=== PATIENT | male | born 1965 | race Caucasian/White ===

== ENCOUNTER 2018-06-18 18:29 | Inpatient (IN) ==
--- NOTE | 2018-06-18 18:43 | PROVIDER DOCUMENTATION ---
HPI-General Adult - General Chief Complaint: Chest Pain Stated Complaint: CP/SOB Time Seen by Provider: 06/18/18 18:43 Allergies/Adverse Reactions: Patient Allergies Allergy/AdvReac Type Severity Reaction Status Date / Time No Known Allergies Allergy Verified 01/11/18 06:08 Home Medications: Home Medication List Medication Instructions Recorded Confirmed Last Taken Type Pregabalin [Lyrica] 100 mg PO HS capsule 04/19/17 01/11/18 Unknown Rx Insulin Lispro [Humalog] 10 unit SQ AC 01/11/18 01/12/18 Unknown History Methadone HCl 1 tab PO DAILY 01/11/18 01/11/18 Unknown History Oxycodone HCl/Acetaminophen 1 tab PO DAILY 01/11/18 01/11/18 Unknown History [Oxycodon-Acetaminophen 7.5-325] Insulin Glargine [Lantus] 30 units SQ QHS 01/12/18 01/12/18 Unknown History Past History - Adult - PAST MEDICAL HISTORY-ADULT Major Childhood Illnesses: reports: denies history Cardiovascular: reports: denies history Genitourinary: reports: denies history Endocrine/Immune: reports: Diabetes - IMMUNIZATION STATUS Childhood Immunizations: See Nurse Assessment Flu Vaccine: See Nurse Assessment Progress - PLAN OF CARE/RESULTS Progress/Plan/Lab Results: Vital Signs - 8 hr 06/18/18 18:30 Temperature 98 F Pulse Rate 119 H Respiratory Rate 35 H O2 Sat by Pulse Oximetry 98 Departure - Departure Referrals and Follow-Ups: None,PCP [Primary Care Provider] -
[2018-06-18] MEDS ORDERED: NS 2,000 ML IV ONE (19:04)
[2018-06-18 19:20] LABS: BE -26.1 mmoll (-3.0-3.0); BLOOD TYPE ARTERIAL; HCO3-(ACT) 4.5 mmoll (20.0-26.0); O2(CT) 20.7 mL/dL (15.0-23.0); O2HB 96.8 % (95.0-99.0); PO2(98.6) 131 mmHg (60-100); SAMPLE BLOOD; SAO2 99.7 % (95.0-100.0); THB 15.1 g/dL (11.5-17.4)
[2018-06-18 19:22] LABS: PCO2(98.6) 11 mmHg (35-45); pH(98.6) 7.02 (7.35-7.45)
[2018-06-18 19:23] LABS: ALLEN TEST NO; MODALITY ROOM AIR
[2018-06-18] MEDS ORDERED: ROCEPHIN 1 GM in NS 50 ML IV ONE (19:39)
[2018-06-18] MEDS ORDERED: NS 500 ML IV ONE (19:42)
[2018-06-18] MEDS ORDERED: VANCOMYCIN 1 GM/NS 1 GM/250 ML IVPB IV ONE (19:42)
[2018-06-18] MEDS ORDERED: NS 1,000 ML IV ONE (19:42)
[2018-06-18] MEDS ORDERED: HUMULIN R IV ONE (19:54)
[2018-06-18] MEDS ORDERED: ZYPREXA ZYDIS PO ONE (19:58)
[2018-06-18] MEDS ORDERED: HUMULIN R (PARKWAY) 100 UNITS in NS 100 ML IV SCH (20:00)
[2018-06-18 20:01] LABS: BASO# 0.11 X1000 (0.0-0.2); BASO% 0.4 % (0.0-0.8); EOS# 0.05 X1000 (0.0-0.7); EOS% 0.2 % (0.0-10.0); HEMATOCRIT 43.3 % (42.0-52.0); HEMOGLOBIN 14.7 g/dL (14.0-18.0); IMM GRAN# 0.73 X1000 (0.0-0.04); IMM GRAN% 2.8 % (0.0-0.5); LYMPH# 4.13 X1000 (1.2-3.4); MCHC 33.9 g/dL (33-37); MCV 88.4 FL (81-99); MONO# 0.98 X1000 (0.11-0.59); MONO% 3.8 % (1.7-9.3); MPV 10.5 FL (7.4-10.4); NEUT# 19.86 X1000 (1.4-6.5); NEUT% 76.8 % (42.2-75.2); PLT 412 X1000 (130-400); RDW 13.9 % (11.5-14.5); WBC 25.86 X1000 (4.8-10.8)
--- NOTE | 2018-06-18 20:02 | PROVIDER DOCUMENTATION ---
This chart was entered by Mike Nagel Scribe, acting as scribe for Camilo Lubin MD. HPI-Chest Pain - General Chief Complaint: Chest Pain Stated Complaint: CP/SOB Time Seen by Provider: 06/18/18 18:43 Source: patient Allergies/Adverse Reactions: Patient Allergies Allergy/AdvReac Type Severity Reaction Status Date / Time No Known Allergies Allergy Verified 01/11/18 06:08 Home Medications: Home Medication List Medication Instructions Recorded Confirmed Last Taken Type Pregabalin [Lyrica] 100 mg PO HS capsule 04/19/17 01/11/18 Unknown Rx Insulin Lispro [Humalog] 10 unit SQ AC 01/11/18 01/12/18 Unknown History Methadone HCl 1 tab PO DAILY 01/11/18 01/11/18 Unknown History Oxycodone HCl/Acetaminophen 1 tab PO DAILY 01/11/18 01/11/18 Unknown History [Oxycodon-Acetaminophen 7.5-325] Insulin Glargine [Lantus] 30 units SQ QHS 01/12/18 01/12/18 Unknown History - History of Present Illness-CP Nature of Presenting Problem: Pt is a 53 y/o WM with history of diabetes and chronic back pain requiring daily methadone who presents with fingerstick glucose over 500, tachycardia, polydypsia,polyuria, pleuritic chest pain, and dry mucous membranes- worsening over the past 2 days. Patient is demanding pain medication for his chronic back pain. Location: reports: central Chest Pain Radiation: reports: back Quality of Pain: reports: aching Severity in ED: moderate Onset/Duration: 2 days ago Timing: still present Context/Activities at Onset: reports: none Modifying Factors: improves with: nothing Associated Symptoms: denies: abdominal pain, dizziness, fever/chills, shortness of breath Nitro Today/Relief: no nitro taken today Aspirin Treatment Today: no aspirin today Similar Symptoms Previously?: No Recently Seen Here or By Another Healthcare Provider: No Review of Systems - Adult - REVIEW OF SYSTEMS - ADULT Constitutional: denies: chills, fever Eyes: reports: no symptoms reported Ears, Nose, Mouth & Throat: reports: no symptoms reported Cardiovascular: reports: chest pain, edema Respiratory: reports: shortness of breath. denies: cough, wheezing Gastrointestinal: denies: abdominal pain, nausea, vomiting Genitourinary: reports: frequency. denies: dysuria Musculoskeletal: reports: back pain. denies: neck pain Integumentary: reports: no symptoms reported Neurological: denies: dizziness/vertigo, headache/migraines Psychiatric: reports: no symptoms reported Endocrine: reports: no symptoms reported Hematologic/Lymphatic: reports: no symptoms reported Allergic/Immunologic: reports: no symptoms reported All Other Systems: Reviewed and Negative Past History - Adult - PAST MEDICAL HISTORY-ADULT Review of Records: reports: Old Records Reviewed, Nursing Assessment Review, Medications Reviewed Major Childhood Illnesses: reports: denies history Cardiovascular: reports: denies history Genitourinary: reports: denies history Endocrine/Immune: reports: Diabetes - IMMUNIZATION STATUS Childhood Immunizations: See Nurse Assessment Flu Vaccine: See Nurse Assessment - SOCIAL HISTORY Smoking: cigarettes, less than 1 pack/day Living Situation: family Physical Exam-General - PHYSICAL EXAM-ADULT Initial Vital Signs Reviewed: Yes - CONSTITUTIONAL General Appearance: alert, no apparent distress, mild distress, other (fruity odor, dry mucous membranes, anxious,agitated) - EYES Eyes: PERRL/EOMI, pink conjunctivae - HEAD, EARS, NOSE, MOUTH & THROAT HENMT: other (clear pharynx). negative: moist mucous membranes (dry) - NECK Neck: non-tender, full range of motion, supple, normal inspection - RESPIRATORY Respiratory: pain on inspiration, retractions, increased rate - CARDIOVASCULAR Cardiovascular: normal peripheral pulses, tachycardia - GASTROINTESTINAL (ABDOMEN) Abdominal Exam: normal bowel sounds, non tender, soft - MUSCULOSKELETAL Back Exam: normal inspection, no CVA tenderness, other (vague lower back tenderness) Extremity: normal range of motion, non-tender, normal gait, normal inspection Peripheral Pulses: radial (R): 2+, radial (L): 2+ - SKIN Integumentary: normal color, warm/dry, other (decreased turgor) - NEUROLOGIC Neurologic: grossly normal, no motor/sensory deficits - PSYCHIATRIC Psych/Mental Status: normal thought content, normal thought process, oriented x 3, anxious Progress - PLAN OF CARE/RESULTS Progress/Plan/Lab Results: Vital Signs - 8 hr 06/18/18 18:30 06/18/18 18:45 Temperature 98 F Pulse Rate 119 H 122 H Respiratory Rate 35 H Blood Pressure 134/102 O2 Sat by Pulse Oximetry 98 Laboratory Results - last 24 hr 06/18/18 06/18/18 06/18/18 18:49 18:49 18:49 WBC 25.86 H RBC 4.90 Hgb 14.7 Hct 43.3 MCV 88.4 MCH 30.0 MCHC 33.9 RDW Std Deviation 13.9 Plt Count 412 H MPV 10.5 H Immature Gran % (Auto) 2.8 H Neut % (Auto) 76.8 H Lymph % (Auto) 16.0 L Wirt % (Auto) 3.8 Eos % (Auto) 0.2 Baso % (Auto) 0.4 Immature Gran # (Auto) 0.73 H Neut # (Auto) 19.86 H Lymph # (Auto) 4.13 H Wirt # (Auto) 0.98 H Eos # (Auto) 0.05 Baso # (Auto) 0.11 D-Dimer, Quantitative Specimen Type Sample Site pH pCO2 pO2 HCO3 Base Excess Oxyhemoglobin ABG O2 Sat (Calculated) ABG O2 Saturation ABG Carboxyhemoglobin ABG Methemoglobin [place] Test A-a O2 Difference Total Hemoglobin Lactate Blood Gas Modality FiO2 % Sodium 136 Potassium 5.2 H Chloride 86 L Carbon Dioxide 4 L Anion Gap 46 BUN 23 H Creatinine 1.7 H Estimated GFR/1.73 m2 42 BUN/Creatinine Ratio 14 Calculated Osmolality 312 Calcium 9.9 Phosphorus Total Bilirubin 0.40 AST 53 H ALT 167 H Alkaline Phosphatase 123 H Creatine Kinase 72 Troponin T Afm-Y-Afzzgumypwj Pept Total Protein 7.8 Albumin 4.4 Globulin 3.0 Albumin/Globulin Ratio 1.0 Amylase 7 L Lipase 9 L 06/18/18 06/18/18 06/18/18 18:49 18:49 18:49 WBC RBC Hgb Hct MCV MCH MCHC RDW Std Deviation Plt Count MPV Immature Gran % (Auto) Neut % (Auto) Lymph % (Auto) Wirt % (Auto) Eos % (Auto) Baso % (Auto) Immature Gran # (Auto) Neut # (Auto) Lymph # (Auto) Wirt # (Auto) Eos # (Auto) Baso # (Auto) D-Dimer, Quantitative 0.97 H Specimen Type Sample Site pH pCO2 pO2 HCO3 Base Excess Oxyhemoglobin ABG O2 Sat (Calculated) ABG O2 Saturation ABG Carboxyhemoglobin ABG Methemoglobin [place] Test A-a O2 Difference Total Hemoglobin Lactate Blood Gas Modality FiO2 % Sodium Potassium Chloride Carbon Dioxide Anion Gap BUN Creatinine Estimated GFR/1.73 m2 BUN/Creatinine Ratio Calculated Osmolality Calcium Phosphorus Total Bilirubin AST ALT Alkaline Phosphatase Creatine Kinase Troponin T < 0.010 Fye-[id number]-Hirqeqdxqgv Pept 199 H Total Protein Albumin Globulin Albumin/Globulin Ratio Amylase Lipase 06/18/18 06/18/18 18:49 19:00 WBC RBC Hgb Hct MCV MCH MCHC RDW Std Deviation Plt Count MPV Immature Gran % (Auto) Neut % (Auto) Lymph % (Auto) Wirt % (Auto) Eos % (Auto) Baso % (Auto) Immature Gran # (Auto) Neut # (Auto) Lymph # (Auto) Wirt # (Auto) Eos # (Auto) Baso # (Auto) D-Dimer, Quantitative Specimen Type ARTERIAL Sample Site L BRACHIAL pH 7.02 L* pCO2 11 L* pO2 131 H HCO3 4.5 L Base Excess -26.1 L Oxyhemoglobin 96.8 ABG O2 Sat (Calculated) 20.7 ABG O2 Saturation 99.7 ABG Carboxyhemoglobin 1.90 ABG Methemoglobin 1.0 [place] Test NO A-a O2 Difference 5.0 Total Hemoglobin 15.1 Lactate 7.90 H* Blood Gas Modality ROOM AIR FiO2 % 21.0 Sodium Potassium Chloride Carbon Dioxide Anion Gap BUN Creatinine Estimated GFR/1.73 m2 BUN/Creatinine Ratio Calculated Osmolality Calcium Phosphorus 8.0 H Total Bilirubin AST ALT Alkaline Phosphatase Creatine Kinase Troponin T Arv-R-Osftvzfcacc Pept Total Protein Albumin Globulin Albumin/Globulin Ratio Amylase Lipase Orders Category Date Time Status Cardiac Monitoring DIRECTED Care 06/18/18 18:44 Active FSBS/Accucheck Result NOW Care 06/18/18 18:43 Active IV Insertion ORDERED Care 06/18/18 19:42 Active Intake and Output-Strict ORDERED Care 06/18/18 19:42 Active Notify MD/PA/SURVEY INTERVIEWER for exam NOW Care 06/18/18 19:42 Active Repeat Vital Signs .Blood Pressure Care 06/18/18 19:42 Active Repeat Vital Signs .Heart Rate Care 06/18/18 19:42 Active Repeat Vital Signs .Oxygen Saturation Care 06/18/18 19:42 Active Repeat Vital Signs .Respiratory Rate Care 06/18/18 19:42 Active Repeat Vital Signs .Temp Care 06/18/18 19:42 Active Saline Loc DIRECTED Care 06/18/18 18:44 Active NPO Diet 06/18/18 18:44 Active CHEST-PORTABLE [RAD] Stat Exams 06/18/18 19:06 Ordered ABG [RESP] Routine Lab 06/18/18 19:00 Completed AMYLASE [CHEM] Stat Lab 06/18/18 18:49 Results BLOOD CULTURE [BLDCUL] Stat Lab 06/18/18 20:17 Ordered CBC WITH ELECTRONIC DIFF [HEME] Stat Lab 06/18/18 18:49 Completed CK PROFILE [SP CHEM] Stat Lab 06/18/18 18:49 Completed COMPREHENSIVE METABOLIC PANEL [CHEM] Stat Lab 06/18/18 18:49 Results D-DIMER [COAG] Stat Lab 06/18/18 18:[address] Stat Lab 06/18/18 19:42 Uncollected LACTATE, PLASMA [CHEM] Timed Lab 06/18/18 19:42 Ordered LIPASE [CHEM] Stat Lab 06/18/18 18:49 Results MAGNESIUM [CHEM] Lab 06/18/18 21:00 Uncollected MAGNESIUM [CHEM] Lab 06/19/18 01:00 Uncollected MAGNESIUM [CHEM] Lab 06/19/18 05:00 Uncollected MAGNESIUM [CHEM] Stat Lab 06/18/18 20:05 Ordered PHOSPHORUS [CHEM] Q4HR Lab 06/18/18 18:49 Completed PHOSPHORUS [CHEM] Q4HR Lab 06/19/18 01:00 Ordered PHOSPHORUS [CHEM] Q4HR Lab 06/19/18 05:00 Ordered PHOSPHORUS [CHEM] Stat Lab 06/18/18 20:05 Ordered PRO B-NATRIURETIC PEPTIDE Stat Lab 06/18/18 18:49 Completed TROPONIN T Stat Lab 06/18/18 18:[address] W/POSS RFLX CULT [URINALYSIS] Stat Lab 06/18/18 18:44 Uncollected URINE DRUG SCREEN PL Stat Lab 06/18/18 19:54 Uncollected 0.9% Sodium Chloride Inj [Ns] 1,000 ml Med 06/18/18 19:42 Discontinued IV As Directed 0.9% Sodium Chloride Inj [Ns] 100 ml Med 06/18/18 20:00 Active Insulin Human Regular ([place] [Humulin R ([place])] 100 units IV 7 units/hr 0.9% Sodium Chloride Inj [Ns] 2,000 ml Med 06/18/18 19:04 Active IV 999 mls/hr 0.9% Sodium Chloride Inj [Ns] 500 ml Med 06/18/18 19:42 Discontinued IV 999 mls/hr CefTRIAXONE [Rocephin] 1 gm Med 06/18/18 19:39 Discontinued 0.9% Sodium Chloride Inj [Ns] 50 ml IV NOW Insulin Human Regular [Humulin R] Med 06/18/18 19:54 Discontinued 10 unit IV NOW ONE Olanzapine Rapdis [Zyprexa Zydis] Med 06/18/18 19:58 Discontinued 15 mg PO NOW ONE Vancomycin 1 gm/Ns Med 06/18/18 19:42 Active 1 gm in 250 ml IV NOW EKG [EKG] Stat Ther 06/18/18 18:45 Ordered Result Diagrams: 06/18/18 18:49 06/18/18 18:49 - REASSESSMENT Reassessment #1 Time Reassessed: 19:26 Status: unchanged (Pt requests pain meds for his chronic back pain. He states he is on Methadone) - EKG 1 Time of EKG reading by physician:: 18:42 EKG Read and Signed by:: Camilo Lubin EKG Interpretation (*Must complete 3 of following elements*): Abnormal Rate: 103 Rhythm: sinus tachcardia Comments: nonspecific ST and T wave abnormality Departure - Departure Date of Disposition Decision: 06/18/18 Time of Disposition Decision: 20:18 DIAGNOSIS: DKA (diabetic ketoacidoses) Qualifiers: Diabetes mellitus type: type 2 Diabetes mellitus complication detail: without coma Qualified Code(s): E11.10 - Type 2 diabetes mellitus with ketoacidosis without coma Leukocytosis Qualifiers: Leukocytosis type: unspecified Qualified Code(s): D72.829 - Elevated white blood cell count, unspecified Disposition: ADMITTED INPATIENT 09 Certified Medical Emergency: Emergent Condition: Critical Referrals and Follow-Ups: None,PCP [Primary Care Provider] - - Critical Care Note This patient required my direct & personal management of CC.: Yes Total Time (mins): 105 Critical Care Statement: This patient required my direct personal management to treat or rule out processes, the absence of which, could potentiallly result in sudden, clinically significant life or limb threatening deterioration. Attestation - Physician/ MELQUIADES Attestation Patient care was provided by Advanced Practice Provider:: No The physician spent face to face time with patient:: Yes Advanced Practice Provider documentation review:: Supervising physician onsite and consulted in the evaluation and care of this patient. The physician did have a face to face encounter with the patient. This chart was documented by the indicated scribe, (Mike Nagel Scribe) and accurately reflects the services I performed and decisions made by me, Camilo Lubin MD, as attested by the provider's signature.
[2018-06-18 20:07] LABS: ALBUMIN 4.4 g/dL (3.5-5.0); CALCIUM 9.9 mg/dL (8.8-10.2); CREATININE 1.7 mg/dL (0.7-1.2); POTASSIUM 5.2 mmol/L (3.5-5.1); TOTAL BILIRUBIN 0.4 mg/dL (0.20-1.00); TOTAL PROTEIN 7.8 g/dL (6.3-8.3)
[2018-06-18] MEDS ORDERED: ZOFRAN IV PRN (20:20)
[2018-06-18] MEDS ORDERED: MORPHINE IV PRN (20:20)
--- NOTE | 2018-06-18 20:28 | EKG Report ---
Test Performed on : 06/18/2018 6:42:47 PM Test Reason : pain Blood Pressure : / mmHG Vent. Rate : 102 BPM Atrial Rate : 102 BPM P-R Int : 136 ms QRS Dur : 092 ms QT Int : 386 ms P-R-T Axes : 066 034 074 degrees QTc Int : 503 ms Sinus tachycardia. Nonspecific ST and T wave abnormality Abnormal ECG When compared with ECG of 11-JAN-2018 06:50, (Unconfirmed) No significant change was found Unconfirmed Result
[2018-06-18 20:29] LABS: MAGNESIUM 2.5 mg/dL (1.5-2.7); PHOSPHORUS 8.1 mg/dL (2.7-4.5)
[2018-06-18 20:50] LABS: INFLUENZA A NEGATIVE (NEGATIVE); INFLUENZA B NEGATIVE (NEGATIVE)
[2018-06-18 20:52] LABS: LYMPHS 17 % (21-51); MONO 2 % (1-9); SEGS 81 % (42-75)
[2018-06-18 21:26] LABS: BE -24.2 mmoll (-3.0-3.0); BLOOD TYPE ARTERIAL; METHB 1.2 % (0.0-1.5); O2(CT) 20.2 mL/dL (15.0-23.0); O2HB 96.2 % (95.0-99.0); PO2(98.6) 118 mmHg (60-100); SAMPLE BLOOD; SAO2 98.9 % (95.0-100.0); THB 14.8 g/dL (11.5-17.4)
[2018-06-18 21:28] LABS: MODALITY ROOM AIR; PCO2(98.6) 13 mmHg (35-45); pH(98.6) 7.07 (7.35-7.45)
[2018-06-18 21:29] LABS: ALLEN TEST NO
--- NOTE | 2018-06-18 22:12 | Diag Imaging Result Doc PS360 ---
EXAM: CHEST-PORTABLE HISTORY: sob TECHNIQUE: Chest single view COMPARISON: 01/11/2018 FINDINGS: The lungs are well expanded. The heart is not enlarged. The vessels are not distended. There are no infiltrates. No effusion identified. IMPRESSION: Negative exam. Electronically signed by Harrison Vasquez 06/18/2018 10:10 PM
[2018-06-19 00:38] LABS: CALCIUM 8.9 mg/dL (8.8-10.2); CREATININE 1.6 mg/dL (0.7-1.2); POTASSIUM 4.6 mmol/L (3.5-5.1)
[2018-06-19] MEDS ORDERED: SODIUM PHOSPHATE 30 MMOL in D5W 250 ML IV PRN (01:01)
[2018-06-19] MEDS ORDERED: D50W SYRINGE IV PRN (01:01)
[2018-06-19] MEDS ORDERED: POTASSIUM CHLORIDE 40 MEQ/SWI 40 MEQ/100 ML IVPB IV PRN (01:01)
[2018-06-19] MEDS ORDERED: HUMULIN R 100 UNIT in NS 99 ML IV SCH (01:01)
[2018-06-19] MEDS ORDERED: ZOFRAN IV PRN (01:01)
[2018-06-19] MEDS ORDERED: HUMULIN R IV ONE (01:01)
[2018-06-19] MEDS ORDERED: MAGNESIUM SULFATE 2 GM/S.W.I. 2 GM/50 ML IVPB IV PRN (01:01)
[2018-06-19] MEDS ORDERED: TYLENOL PO PRN (01:01)
[2018-06-19] MEDS ORDERED: D5 NS 1,000 ML IV SCH (01:01)
[2018-06-19] MEDS ORDERED: VANCOMYCIN IV PER PHARMACY MISC SCH (01:15)
[2018-06-19 01:19] LABS: MAGNESIUM 2.2 mg/dL (1.5-2.7); PHOSPHORUS 4.1 mg/dL (2.7-4.5)
[2018-06-19 01:25] LABS: BE -10.5 mmoll (-3.0-3.0); BLOOD TYPE ARTERIAL; HCO3-(ACT) 16.7 mmoll (20.0-26.0); METHB 1.5 % (0.0-1.5); O2(CT) 18.5 mL/dL (15.0-23.0); O2HB 95.4 % (95.0-99.0); PO2(98.6) 96 mmHg (60-100); SAMPLE BLOOD; SAO2 98.6 % (95.0-100.0); THB 13.7 g/dL (11.5-17.4)
[2018-06-19 01:28] LABS: ALLEN TEST YES; MODALITY ROOM AIR; PCO2(98.6) 19 mmHg (35-45)
[2018-06-19 01:31] LABS: BILIRUBIN URINE NEGATIVE (NEGATIVE); BLOOD URINE NEGATIVE (NEGATIVE); CLARITY CLEAR (CLEAR); COLOR STRAW; KETONE URINE 3+(Large) mg/dL (NEGATIVE); LEUKOCYTES URINE NEGATIVE (NEGATIVE); NITRITE URINE NEGATIVE (NEGATIVE); PROTEIN URINE TRACE mg/dL (NEGATIVE); UROBILINOGEN URINE NORMAL
[2018-06-19] MEDS: NS 1,000 ML IV SCH ×7 (01:31→17:35)
[2018-06-19 01:35] LABS: URINE BACTERIA 2+ /HFP; URINE EPITHELIAL CELLS <10 /HPF (<10); URINE SOURCE CATH; URINE WBC NS /HPF (<10)
[2018-06-19] MEDS ORDERED: ROCEPHIN 1 GM in NS 50 ML IV SCH ×2 (02:00→17:00)
[2018-06-19] MEDS ORDERED: VANCOMYCIN 500 MG/NS 500 MG/100 ML IVPB IV ONE (02:00)
[2018-06-19] MEDS: POTASSIUM CHLORIDE 20 MEQ/SWI 20 MEQ/100 ML IVPB IV PRN ×3 (02:26→12:01)
[2018-06-19 04:55] LABS: MAGNESIUM 2.1 mg/dL (1.5-2.7); PHOSPHORUS 1.3 mg/dL (2.7-4.5)
[2018-06-19 05:02] LABS: CALCIUM 8.6 mg/dL (8.8-10.2); CREATININE 1.3 mg/dL (0.7-1.2); POTASSIUM 4.4 mmol/L (3.5-5.1)
[2018-06-19 05:59] LABS: BE -4.5 mmoll (-3.0-3.0); BLOOD TYPE ARTERIAL; HCO3-(ACT) 21.3 mmoll (20.0-26.0); METHB 1.2 % (0.0-1.5); O2(CT) 16.9 mL/dL (15.0-23.0); O2HB 93.8 % (95.0-99.0); PCO2(98.6) 29 mmHg (35-45); PO2(98.6) 69 mmHg (60-100); SAMPLE BLOOD; SAO2 96.9 % (95.0-100.0); THB 12.8 g/dL (11.5-17.4); pH(98.6) 7.42 (7.35-7.45)
[2018-06-19 06:02] LABS: ALLEN TEST YES; MODALITY ROOM AIR
[2018-06-19 07:51] LABS: AGAP 13; BUN 26 mg/dL (8-22); CALCIUM 8.8 mg/dL (8.8-10.2); CHLORIDE 107 mmol/L (98-107); COSMO 291; CREATININE 1.1 mg/dL (0.7-1.2); ESTIMATED GFR > 60; GLUCOSE 263 mg/dL (70-104); POTASSIUM 4.8 mmol/L (3.5-5.1); SODIUM 139 mmol/L (136-145); TCO2 19 mmol/L (25-35)
[2018-06-19 07:53] LABS: MAGNESIUM 2.1 mg/dL (1.5-2.7); PHOSPHORUS 1.2 mg/dL (2.7-4.5)
--- NOTE | 2018-06-19 10:51 | Diag Imaging Result Doc PS360 ---
EXAM: CT ANGIOGRM PULMONARY ARTERIES HISTORY: elevated ddimer TECHNIQUE: Routine with IV contrast. 3-D postprocessing. COMPARISON: None. FINDINGS: There is adequate opacification pulmonary arteries and segmental branches. There are no filling defects appreciated. No evidence for acute pulmonary embolism. No aortic aneurysm or dissection. There is coronary artery calcification. No mediastinal lymphadenopathy. There is potentially circumferential distal esophageal thickening. Follow-up recommended. The lungs demonstrate dependent atelectasis or scarring left lower lobe. No effusion. No pneumothorax. No parenchymal masses. Musculoskeletal structures are unremarkable. Images of the abdomen reveal a 2.9 cm hypodense right adrenal mass 18-20 Hounsfield units. Given the size of the adrenal lesion recommend follow-up adrenal MRI. IMPRESSION: 1.No evidence for acute pulmonary embolism. 2.Possible circumferential distal esophageal thickening. 3.2.9 cm indeterminate right adrenal mass. Recommend follow-up adrenal MRI. 4.Coronary artery calcification. This exam was performed using automated exposure control, adjustment of mA or kV according to patient size, and/or use of iterative reconstruction technique. Electronically signed by Lisa Damico 06/19/2018 10:49 AM
[2018-06-19 11:17] LABS: MAGNESIUM 2.1 mg/dL (1.5-2.7); PHOSPHORUS 1.4 mg/dL (2.7-4.5)
[2018-06-19 11:19] LABS: AGAP 12; BUN 23 mg/dL (8-22); CALCIUM 8.8 mg/dL (8.8-10.2); CHLORIDE 106 mmol/L (98-107); COSMO 288; ESTIMATED GFR > 60; GLUCOSE 245 mg/dL (70-104); POTASSIUM 4.3 mmol/L (3.5-5.1); SODIUM 138 mmol/L (136-145); TCO2 20 mmol/L (25-35)
--- NOTE | 2018-06-19 11:19 | HISTORY AND PHYSICAL ---
PRIMARY CARE PHYSICIAN: Dr. Madisyn Herman. CHIEF COMPLAINT: Increased thirst, increased urination, tachycardia and increased blood sugar for the past 2 days that has progressively worsened. HISTORY OF PRESENTING ILLNESS: This is a 53-year-old male who presents to [facility] ER with complaints of increased blood sugar, increased thirst, increased urination, dry mucous membranes and some tachycardia for the past couple of days that has progressively worsened. His laboratory data revealed a white blood cell count of 25.86. D- dimer of 0.97. An ABG with a pH of 7.02, pCO2 of 11, PO2 of 131, bicarb 4.5, lactate 7.90 on room air. His blood sugar on arrival was 757 with an anion gap of 46, BUN of 23, creatinine 1.7. He had some elevation in his LFTs with an AST of 53, ALT 167, alkaline phosphatase 123. He is being admitted to the Intensive Care Unit for further evaluation and treatment. PAST MEDICAL HISTORY: Diabetes. PAST SURGICAL HISTORY: Back surgery x4. FAMILY HISTORY: His dad diabetes. SOCIAL HISTORY: He currently lives with family. He smokes a half a pack of cigarettes a day and has done so for 20 years. Denies any alcohol or illicit drug use. ALLERGIES: He has no known drug allergies. HOME MEDICATIONS: We will need to obtain a current list and restart as appropriate. We will place an order for nursing to update and confirm home medications. LABORATORY DATA: White blood cell count of 25.86, hemoglobin 14.7, hematocrit 43.3, platelets 412,000. D-dimer 0.97. pH of 7.02, pCO2 of 11, PO2 of 131, bicarb 4.5, lactate 7.90, and this was on room air. Repeat this morning shows a pH of 7.42, pCO2 of 29, PO2 of 69 , bicarb 21.3, lactate 0.90 on room air. Sodium was 136, potassium 5.2, chloride 86, CO2 of 4. Anion gap 46. BUN 23, creatinine 1.7, glucose 757. Magnesium was 2.5. AST 53, ALT 167, alkaline phosphatase 123. Cardiac enzyme was negative. ProBNP of 199. Amylase 7, lipase 9 this morning. Repeat showed a sodium of 139, potassium 4.8, chloride 107, CO2 of 19, anion gap 13. BUN of 26, creatinine 1.1. Phosphorus of 1.2, magnesium 2.1. Urinalysis was negative except for 3+ ketones and 3+ glucose. Influenza A and B were both negative. Chest x-ray showed a negative exam. EKG: Sinus tachycardia at 102. REVIEW OF SYSTEMS: He denied any fever, chills, blurred vision, dizziness. He did have increased thirst, increased urination, dry mucous membranes, tachycardia. He denied any chest pain, coughing, shortness of breath. He denied any abdominal pain, constipation, diarrhea, burning or hurting with urination. PHYSICAL EXAMINATION: VITAL SIGNS: On arrival, he had a temperature of 98 degrees, pulse 119, respirations 35, blood pressure 134/102. It is noted that he had a temperature this morning of 101.2. GENERAL: This is a 53-year-old male who is lying in the bed and answers questions appropriately. HEENT: Normocephalic and atraumatic. Normal ENT inspection. Oropharynx and nares are clear. EYES: Pupils are equal, round, and reactive to light and accommodation. Extraocular movements are intact. NECK: Normal inspection. Normal range of motion. LUNGS: Clear to auscultation bilaterally with equal lung expansion and chest wall movement. HEART: With regular rate and rhythm. No murmurs, rubs, or gallops. ABDOMEN: Soft, nontender, nondistended. Bowel sounds are present x4 quadrants. MUSCULOSKELETAL: He has 5/5 strength x4 extremities. NEUROLOGICAL: The cranial nerves 2-12 appear grossly intact. ASSESSMENT: 1. Diabetes, type 2, uncontrolled with DKA. 2. Sepsis. 3. Leukocytosis. 4. Acute kidney injury. 5. An elevated D-dimer. 6. Tobacco abuse. PLAN: He was admitted to the Intensive Care Unit and placed on neuro checks q. 2 hours. We will update and confirm home medications. Placed on telemetry. O2 per protocol. He is n.p.o. at this time. We are going to check a CT angiogram of pulmonary arteries and bilateral lower extremity venous Doppler. Check a CBC now. Blood cultures x2 now. We will place him on: 1. Rocephin 1 gram IV q. 24. 2. Vancomycin per pharmacy protocol. 3. Insulin drip per protocol. 4. Normal saline at 125 mL an hour. 5. Tylenol 650 mg p.o. q.4 hours p.r.n. 6. Zofran 4 mg IV q.6 hours p.r.n. Labs per protocol also, and further orders after being seen by attending. Dictated by MARY Sheth for Adi Galeano MD cc: MARY Sheth MD Dr. ? Reid MTDD
--- NOTE | 2018-06-19 11:30 | PROGRESS NOTE ---
DATE: 06/19/2018 CHIEF COMPLAINT: Was nausea, vomiting, back pain. SUBJECTIVE: Blood sugars have been over 500. He is usually on lispro and Lantus. He also takes methadone. In any case, the patient was in full-blown DKA when he came in. PHYSICAL EXAM: He looks dehydrated and he is still not feeling very well. No focal complaints. In any case, patient is stabilizing. He is on an insulin drip, DKA protocol. This is a [id number] encounter note with MARY Sheth. We also evaluate for his fever. At this point, there is no clear source. Urine, chest x-ray is clear. CT angiogram is in process and we will pursue abdominal ultrasound because he does have elevated liver enzymes as well as a hepatitis profile. We will continue to follow closely. cc: Adi Galeano MD
[2018-06-19] MEDS: SODIUM CHLORIDE 0.9% INJ SCH ×2 (12:01→23:27)
[2018-06-19] MEDS: PROTONIX IV SCH ×2 (12:01→23:27)
[2018-06-19 14:33] LABS: BASO# 0.01 X1000 (0.0-0.2); BASO% 0.1 % (0.0-0.8); HEMATOCRIT 32.7 % (42.0-52.0); HEMOGLOBIN 11.5 g/dL (14.0-18.0); IMM GRAN# 0.06 X1000 (0.0-0.04); IMM GRAN% 0.4 % (0.0-0.5); LYMPH# 1.32 X1000 (1.2-3.4); LYMPH% 8.9 % (20.5-51.1); MCH 29.6 PG (27-31); MCHC 35.2 g/dL (33-37); MCV 84.1 FL (81-99); MONO# 1.31 X1000 (0.11-0.59); MONO% 8.9 % (1.7-9.3); MPV 9.6 FL (7.4-10.4); NEUT# 12.08 X1000 (1.4-6.5); NEUT% 81.7 % (42.2-75.2); PLT 265 X1000 (130-400); RBC 3.89 XMIL (4.7-6.1); RDW 13.6 % (11.5-14.5); WBC 14.78 X1000 (4.8-10.8)
[2018-06-19] MEDS ORDERED: BASAGLAR SUBQ ONE (14:46)
[2018-06-19] MEDS ORDERED: INSULIN PEN NEEDLES MISC PRN (14:48)
--- NOTE | 2018-06-19 16:19 | Diag Imaging Result Doc PS360 ---
US ABDOMEN-COMPLETE - 06/19/2018 INDICATION: abdominal pain TECHNIQUE: Perez scale, color Doppler, and duplex evaluation of the abdomen was performed. COMPARISON: None FINDINGS: The liver appears normal in size and echotexture. No focal masses are appreciated. The distal IVC and aorta are obscured. The pancreas is unremarkable. The gallbladder contains a 2.4 x 1.9 x 1.4 cm nonmobile gallstone. No sonographic Musa's sign. No pericholecystic fluid. No gallbladder wall thickening. The common bile duct measures 2.5 mm. The portal vein is patent with hepatopetal flow. Spleen is unremarkable. The kidneys appear normal bilaterally. There is no hydronephrosis. There is a 2.4 cm hypoechoic suprarenal/adrenal mass. Recommend follow-up with dedicated adrenal CT with and without contrast or adrenal MRI. IMPRESSION: 1.2.4 cm nonmobile gallstone. No sonographic evidence for acute cholecystitis. 2.2.4 cm suspected adrenal mass. Recommend dedicated pre and postcontrast adrenal CT or adrenal MRI. Electronically signed by Lisa Damico 06/19/2018 4:17 PM
[2018-06-19] MEDS: HUMALOG (PARKWAY) SUBQ SCH ×2 (16:47→20:39)
--- NOTE | 2018-06-19 16:47 | Extremity Venous Study ---
EXAM: Venous U/S Bilateral Legs HISTORY: elevated ddimer TECHNIQUE: Perez scale, color Doppler, and duplex evaluation was performed. COMPARISON: None. FINDINGS: The deep veins of the bilateral lower extremities demonstrate appropriate compressibility and augmentation. No intraluminal thrombus is visualized. There is no evidence for DVT. The superficial veins appear patent. IMPRESSION: No evidence for deep venous thrombosis bilateral lower extremities. Electronically signed by Lisa Damico 06/19/2018 4:44 PM
[2018-06-19] MEDS ORDERED: VANCOMYCIN 1,500 MG in NS 250 ML IV SCH (18:00)
[2018-06-19] MEDS: METHADONE PO SCH (20:49)
[2018-06-20] MEDS: HUMALOG (PARKWAY) SUBQ SCH ×6 (00:14→21:06)
[2018-06-20] MEDS: NS 1,000 ML IV SCH ×3 (02:09→17:06)
[2018-06-20 05:55] LABS: AGAP 11; BUN 12 mg/dL (8-22); CALCIUM 8.4 mg/dL (8.8-10.2); CHLORIDE 107 mmol/L (98-107); COSMO 281; CREATININE 0.7 mg/dL (0.7-1.2); ESTIMATED GFR > 60; GLUCOSE 160 mg/dL (70-104); POTASSIUM 3.3 mmol/L (3.5-5.1); SODIUM 139 mmol/L (136-145); TCO2 21 mmol/L (25-35)
[2018-06-20 05:57] LABS: BASO# 0.01 X1000 (0.0-0.2); BASO% 0.1 % (0.0-0.8); EOS# 0.01 X1000 (0.0-0.7); EOS% 0.1 % (0.0-10.0); HEMOGLOBIN 11.6 g/dL (14.0-18.0); IMM GRAN# 0.02 X1000 (0.0-0.04); IMM GRAN% 0.2 % (0.0-0.5); LYMPH# 2.05 X1000 (1.2-3.4); MCH 29.1 PG (27-31); MCHC 34.1 g/dL (33-37); MCV 85.2 FL (81-99); MONO# 0.62 X1000 (0.11-0.59); MONO% 6.7 % (1.7-9.3); NEUT% 70.9 % (42.2-75.2); PLT 177 X1000 (130-400); RBC 3.99 XMIL (4.7-6.1); RDW 13.9 % (11.5-14.5); WBC 9.31 X1000 (4.8-10.8)
[2018-06-20 05:59] LABS: ALBUMIN 3.2 g/dL (3.5-5.0); ALKALINE PHOSPHATASE 80 U/L (32-122); DIRECT BILIRUBIN < 0.20 mg/dL (0.00-0.20); GOT 101 U/L (10-34); GPT 101 U/L (10-44); TOTAL PROTEIN 5.2 g/dL (6.3-8.3)
[2018-06-20] MEDS: PERCOCET-5 PO SCH (08:34)
[2018-06-20] MEDS: METHADONE PO SCH ×2 (08:34→21:01)
[2018-06-20] MEDS: PROTONIX IV SCH ×2 (12:52→23:32)
[2018-06-20] MEDS: SODIUM CHLORIDE 0.9% INJ SCH ×2 (12:52→23:34)
--- NOTE | 2018-06-20 13:30 | Diag Imaging Result Doc PS360 ---
CT ABDOMEN W/WO CONTRAST - 06/20/2018 INDICATION: adrenal mass COMPARISON: Chest CT 06/19/2018 FINDINGS: There is a right adrenal nodule measuring 2.4 cm maximally. The precontrast density of the right adrenal gland nodule is 10 Hounsfield units. The contrast-enhanced density is about 59. The washout density is 28. The absolute washout of 63.3%. The relative washout is 52.5%. Both of these values are consistent with a benign adenoma. 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 This exam was performed using automated exposure control, adjustment of mA or kV according to patient size, and/or use of iterative reconstruction technique Electronically signed by Quan Jose 06/20/2018 1:27 PM
[2018-06-20 18:10] LABS: AGAP 15; ALBUMIN 3.1 g/dL (3.5-5.0); ALKALINE PHOSPHATASE 80 U/L (32-122); BUN 14 mg/dL (8-22); CALCIUM 8.4 mg/dL (8.8-10.2); CHLORIDE 100 mmol/L (98-107); COSMO 281; CREATININE 0.8 mg/dL (0.7-1.2); ESTIMATED GFR > 60; GLUCOSE 282 mg/dL (70-104); GOT 93 U/L (10-34); GPT 97 U/L (10-44); POTASSIUM 3.8 mmol/L (3.5-5.1); SODIUM 135 mmol/L (136-145); TCO2 20 mmol/L (25-35); TOTAL PROTEIN 5.4 g/dL (6.3-8.3)
[2018-06-20] MEDS ORDERED: BASAGLAR SUBQ SCH (21:00)
--- NOTE | 2018-06-20 21:48 | GENERAL SURGERY CONSULTATION ---
DATE: 06/20/2018 REASON FOR CONSULTATION: Biliary colic. HISTORY OF PRESENT ILLNESS: This is a 53-year-old male with uncontrolled diabetes and a history of noncompliance, who presented to the hospital 2 days ago with increasing urination, thirst, and severe epigastric pain, with nausea and vomiting. The pain and nausea started several days ago, and have been worse after eating, lessened with standing up he says. Currently, he is having much less pain, and feels better, and is starting to eat some supper. No fever, chills, diarrhea, constipation, or other abdominal complaints. He was found to be in diabetic ketoacidosis on admission, has been treated aggressively, and has improved. He says that he does not have a primary care physician at this time, and needs one because he is going to run out of his diabetic medicines. PAST MEDICAL HISTORY: Uncontrolled diabetes. PAST SURGICAL HISTORY: Multiple back surgeries. FAMILY HISTORY: Diabetes. ALLERGIES: No known drug allergies. SOCIAL HISTORY: He smokes a half a pack of cigarettes per day, and has done so for at least 20 years. No alcohol or illicit drug use. HOME MEDICATIONS: Humalog, methadone, oxycodone, and Lantus. CURRENT MEDICATIONS: Lispro, methadone, Zofran, Percocet, Protonix. REVIEW OF SYSTEMS: Ten systems reviewed and negative, except as noted above. PHYSICAL EXAMINATION: Vital Signs: Temperature 98.4 degrees, pulse 58, blood pressure 145/90, O2 saturation 100%. General: Well-developed, well-nourished male, in no distress, who looks his stated age. HEENT: Normocephalic, atraumatic. Extraocular muscles intact. Pupils equal, round, reactive to light. Sclerae anicteric. Moist mucous membranes. Hearing grossly normal. Neck: Supple. No thyromegaly. CV: Regular rate and rhythm. Respiratory: Bilateral equal breath sounds. No work of breathing. Gastrointestinal: Soft, nondistended. No organomegaly or mass. Mild tenderness in the upper abdomen. No rebound or guarding. Extremities: No clubbing, cyanosis, or edema. Skin: Warm and dry. No rash. Musculoskeletal: Moves all extremities equally and well. LABORATORY: White blood cell count 25,000 on admission, now 9000 today. Hemoglobin 11.6, hematocrit 34, platelet count 177,000. pH 7.02 on admission, 7.4 yesterday. Lactate 7.9 on admission, 0.9 yesterday. Sodium 135, potassium 3.8, chloride 100, CO2 20, BUN 14, creatinine 0.8, glucose ranging from the mid 100s to the mid 300s over the last 24 to 36 hours. IMAGING: Abdominal ultrasound shows a 2.4 cm nonmobile gallstone, but no pericholecystic fluid, common bile duct dilation, or gallbladder wall thickening. There is also a 2.4 cm right adrenal mass. Abdomen CT scan shows a benign adenoma of the right adrenal gland. Chest x-ray is negative. ASSESSMENT AND PLAN: A 53-year-old male with abdominal pain and nausea, with a gallstone, likely biliary colic in nature, in the setting of diabetic ketoacidosis. His diabetic ketoacidosis has improved, and I do think he would benefit from laparoscopic cholecystectomy in the near future. However, I have strongly encouraged him to establish a primary care physician, with regular followup, and more stable blood sugars before we commit to surgery. He will follow up with me as an outpatient for further planning. cc: MD Adi Sanderson MD
[2018-06-21] MEDS: NS 1,000 ML IV SCH ×2 (02:05→10:42)
[2018-06-21] MEDS: HUMALOG (PARKWAY) SUBQ SCH ×4 (02:05→13:28)
[2018-06-21] MEDS ORDERED: LOVENOX SUBQ SCH (06:00)
[2018-06-21 06:36] LABS: BASO# 0.01 X1000 (0.0-0.2); BASO% 0.2 % (0.0-0.8); EOS# 0.05 X1000 (0.0-0.7); EOS% 0.8 % (0.0-10.0); HEMATOCRIT 33.2 % (42.0-52.0); HEMOGLOBIN 11.3 g/dL (14.0-18.0); IMM GRAN# 0.01 X1000 (0.0-0.04); IMM GRAN% 0.2 % (0.0-0.5); LYMPH# 2.77 X1000 (1.2-3.4); LYMPH% 46.4 % (20.5-51.1); MCV 85.3 FL (81-99); MONO# 0.35 X1000 (0.11-0.59); MONO% 5.9 % (1.7-9.3); NEUT# 2.78 X1000 (1.4-6.5); NEUT% 46.5 % (42.2-75.2); PLT 164 X1000 (130-400); RBC 3.89 XMIL (4.7-6.1); RDW 13.7 % (11.5-14.5); RETIC% 1.06 % (0.8-2.1); RETIC-HE 34.5 PG (28.2-36.6); WBC 5.97 X1000 (4.8-10.8)
[2018-06-21 07:00] LABS: IRON SATURATION 40 %; TIBC 184 ug/dL; TOTAL IRON 74 ug/dL (53-167); UNBOUND IRON 110 ug/dL (112-346)
[2018-06-21 08:33] VITALS: BP 121/74
[2018-06-21] MEDS: PERCOCET-5 PO SCH (10:48)
[2018-06-21] MEDS: METHADONE PO SCH (10:49)
[2018-06-21] MEDS: PROTONIX IV SCH (11:51)
[2018-06-21] MEDS: SODIUM CHLORIDE 0.9% INJ SCH (11:51)
[2018-06-21 12:26] LABS: FERRITIN 494 ng/mL (30-400)
[2018-06-21 14:44] LABS: HEPATITIS PROFILE ACUTE SEE COMMENTS
--- NOTE | 2018-06-22 10:42 | DISCHARGE SUMMARY ---
ADMISSION DATE: 06/18/2018 DISCHARGE DATE: 06/21/2018 CONSULTATION: Dr. Eduardo Pablo with General Surgery. PRIMARY CARE PHYSICIAN: None. PERTINENT PROCEDURES: Initial chest x-ray was a negative examination. Pulmonary arteriogram, no evidence of acute PE, possible distal esophageal thickening, 2.9 cm indeterminate right adrenal mass. Recommend follow-up adrenal MRI. Coronary artery calcification. Abdominal ultrasound showed a 2.4 cm nonmobile gallstone, no evidence of acute cholecystitis, 2.4 cm suspected adrenal mass, recommend follow-up with MRI. DISCHARGE DIAGNOSES: 1. Diabetic ketoacidosis, with uncontrolled diabetes mellitus, type 2. The patient was placed in the intensive care unit on diabetic ketoacidosis protocol. 2. Uncontrolled diabetes mellitus, type 2. The patient will continue with home regimen. He is to follow a diabetic diet. He has been educated to follow up with a primary care physician to get his blood sugars under control. 3. Biliary colic. The patient was seen by Dr. Pablo, who feels he would benefit from a laparoscopic cholecystectomy in the near future, but he has been strongly encouraged to get a primary care physician, again, stabilize his blood sugars before they commit to any surgery, and will continue to follow up with Dr. Pablo on an outpatient basis. 4. Sepsis ruled out. 5. Benign adenoma of the right adrenal gland. 6. Elevated D-dimer. Pulmonary embolus and deep venous thrombosis ruled out. 7. Leukocytosis, resolved. 8. Acute kidney injury, resolved. HOSPITAL COURSE: Briefly, Mr. Nunes is a 49-year-old male, who carries a past medical history of diabetes mellitus, type 2. He reported to the [facility] with increased blood sugar, increased thirst, and increased urination. Laboratory data revealed he was in DKA. He was also found to have an elevated white count of 25 and a lactate of 7, and a blood sugar of 757, with anion gap of 46. He had some elevation in his LFTs as well. He was admitted to the ICU and placed on DKA protocol and initially started on broad-spectrum antibiotics. His sepsis was ruled out. After treatment with the protocol he was able to come out of the ICU, placed on his home regimen. He is tolerating a diabetic diet. He did have workup to rule out PE and DVT with a pulmonary arteriogram and extremity Dopplers that were both negative. Finding did show a right adrenal mass. They did a follow-up abdominal CT that showed a benign adenoma of the right adrenal gland. They also found some gallstones. The patient was having some symptoms of biliary colic. He was assessed by General Surgery, Dr. Pablo, who feels that he would benefit in the future from a laparoscopic cholecystectomy, however, he has been strongly encouraged to establish a PCP with regular follow-up and to have more stable blood sugars before he commits to surgery. He will continue to follow up with Dr. Pablo for further planning. He has also been encouraged to follow up with a PCP of his choosing who is accepting patients. VITAL SIGNS: At time of discharge, temperature is 98.1 degrees, heart rate 60, respirations 16, blood pressure 121/74, O2 is 97% on room air. DISCHARGE DIET: Diabetic. DISCHARGE MEDICATIONS: Lantus 30 units subcutaneous at bedtime. Humalog 10 units subcutaneously before meals. Methadone 10 mg tablet p.o. b.i.d. Murdock 7.5/325 1 tab p.o. daily. FOLLOWUP: Mr. Nunes is being discharged home with self-care. He is to make an appointment with a primary care provider to help better control his blood sugars and follow up with regular. He is also follow up with Dr. Eduardo Pablo on an outpatient basis for his biliary colic. He is take all medications as prescribed. Continue to follow his diabetic diet. He can return to the ED or call 911 for any worsening of symptoms. Dictated by MARY Cardona for Adi Galeano MD cc: MD Eduardo Vieyra MD
--- NOTE | 2018-06-22 11:53 | DISCHARGE SUMMARY ---
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 Viral load is pending, although I am suspicious it actually will be positive, so he has referral to Dr. Tristan. He will need follow-up liver enzymes and then possible referral to Hepatology or Gastroenterology. This a [id number] encounter note with MARY Cardona. cc: Adi Galeano MD
[2018-06-26 07:44] LABS: HCV BY PCR SEE COMMENTS
== END 2018-06-21 17:03 | disposition home or self-care (01) | DRG 638 ==
LOC: P.ED 18:29 → SUATTDRO 22:15 → P.ICU 22:15 → P.MEDSURG 06-20 15:28
PROVIDERS: ADMIT Internal Medicine; ATTEND Internal Medicine
CPT/HCPCS: 71010; 71045; 71275; 74170; 76700; 80048; 80053; 80074; 80076; 81001; 82150; 82550; 82607; 82728; 82746; 82805; 82948; 83540; 83550; 83605; 83690; 83735; 83880; 84100; 84484; 85025; 85045; 85379; 87040; 87088; 87275; 87276; 87522; 87804; 93005; 93970; 94761; 96361; 96365; 96366; 99285; 99291; A9270; C9113; J0696; J1650; J1815; J2405; J3370; J3480; J7030; J7050; Q9967; S0109; S0164; XXXXX